=== PATIENT | female | born 1980 | race Caucasian/White ===

== ENCOUNTER → 2020-05-29 18:00 | Outpatient (BNVA) | payer SELFPAY | PROVIDERS: Visit Provider Nurse Practitioner Family | DX: R39.9 Unspecified symptoms and signs involving the genitourinary system (principal); N39.0 Urinary tract infection, site not specified; R31.9 Hematuria, unspecified | CPT/HCPCS: 81000 ==

== ENCOUNTER 2020-11-07 18:04 | Emergency (ER) | payer SELFPAY ==
[2020-11-07 18:07] VITALS: BP 159/87; PULSE 89; RESP 18; TEMP 37.2; O2SAT 98; BMI 49.7
--- NOTE | 2020-11-07 18:08 | XR_ITS ---
WS: [id number] KUB, 11/07/2020 Clinical Data: constipation Comparison: Acute abdomen series, 05/30/2013. Findings: No abnormal intraabdominal masses or calcifications are seen. There is no dilatated small bowel or ev idence of obstruction. There are clips in the right upper quadrant from a cholecystectomy. XR/XR KUB [id number] Impression: Negative KUB.
--- NOTE | 2020-11-07 20:11 | W.ED.ABDPA2 ---
HPI - Abdominal Pain General: Chief Complaint: Abdominal Pain Stated Complaint: severe lower abdomen pain, constipation Time Seen by Provider: 11/07/20 19:51 History of Present Illness: HPI narrative: The patient is a 40-year-old female with diverticulitis who recently finished a course of Augmentin given by primary care doctor. She finished her 10-day course and only a couple days later started having a flareup and she has been in severe left lower quadrant pain. Denies constipation. She says she has her gallbladder out and has normal soft bowel movements MD elicited complaint: abdominal pain Location: LLQ Severity: moderate Quality: cramping and sharp Radiation: LLQ Migration to: no migration Exacerbating factors: bowel movement Relieving factors: nothing Associated Symptoms: Denies GI cramping and diarrhea Review of Systems General: Reports: 10 or more systems reviewed and unremarkable except in HPI and below Const: Denies: fatigue Eyes: Denies: change in vision, blurry vision or eye redness ENMT: Denies: throat pain, swelling of lips/tongue, ear or mastoid pain or nasal congestion Card: Denies: chest pain, palpitations, irregular heart rhythm, edema, dyspnea on exertion or orthopnea Resp: Denies: dyspnea, productive cough or non-productive cough GI: Reports: abdominal pain; Denies: diarrhea or GI cramping : Denies: flank pain, difficulty voiding, urinary frequency or urinary urgency Musc: Denies: neck pain, back pain, extremity pain, joint pain, joint redness, limited range of motion or muscle weakness Skin/Breast: Denies: rash, pruritus, erythema, skin pain or skin tenderness Neuro: Denies: headache(s), numbness in extremities, weakness in extremities, sensory changes, difficulty walking, dizziness, confusion or Slurred speech present Psych: Denies: anxiety or depression Endo: Denies: polyuria All/Imm: Denies: urticaria, throat swelling or tongue swelling PFSH ED PFSH: Social History (Updated 10/26/20 @ 11:25 by COBY Oneil) Smoking and tobacco status: current every day smoker Alcohol intake: current Physical Exam Const: COMMON NORMALS: no acute distress, average body habitus, patient oriented x3, no limitations, healthy appearing, alert and well nourished GENERAL APPEARANCE: cooperative, comfortable, well kempt and well developed ORIENTATION/CONSCIOUSNESS: Yes awake, Yes oriented to person, Yes oriented to place and Yes oriented to time HENMT: COMMON NORMALS: normocephalic, external ears normal and Normal external nose present HEAD & SCALP: normal to inspection and normocephalic NOSE: Normal external nose present EXTERNAL EAR: Yes external ears normal MOUTH: Normal oral and palatal mucosa present THROAT: posterior oropharynx normal Eye: COMMON NORMALS: Equal, round and reactive pupils present and EOMs intact bilaterally GENERAL EYE: appearance normal, both eyes and all related structures PUPIL: Yes Equal, round and reactive pupils present Neck/C-Spine: COMMON NORMALS: full ROM, no lymphadenopathy, no meningeal signs and no JVD GENERAL: Yes normal visual inspection Lymph: LYMPHATIC: no lymphadenopathy noted Chest: COMMONS NORMALS: normal inspection of the chest and normal palpation of entire chest wall Resp: COMMON NORMALS: normal respiratory effort, No retractions, No use of accessory muscles, clear to auscultation bilaterally and percussion normal EFFORT & INSPECTION: Yes able to speak in complete sentences AUSCULTATION: clear to auscultation bilaterally PERCUSSION: percussion normal Cardio: COMMON NORMALS: no JVD, regular rate, regular rhythm, S1 normal heart sound present, S2 normal heart sound present and Peripheral pulses 2+ throughout RATE: regular rate RHYTHM: regular rhythm HEART SOUNDS: S1 normal heart sound present and S2 normal heart sound present PERIPHERAL PULSES: Peripheral pulses 2+ throughout GI: COMMON NORMALS: Normal to inspection, nondistended, normoactive bowel sounds present, Soft to palpation and no masses INSPECTION: Yes normal to inspection PALPATION: Yes Soft to palpation GI image (female): 1. LLQ tenderness. No rebound. Morbid obesity : COMMON NORMALS: Yes no CVA tenderness BLADDER/KIDNEY EXAM: Yes no CVA tenderness Back/Pelvis: COMMON NORMALS: no CVA tenderness, thoracic and lumbar spine normal to inspection, no thoracic nor lumbar tenderness and thoraco-lumbar ROM normal Extremity: COMMON NORMALS: normal to inspection, full ROM, capillary refill normal, no joint enlargement and no pedal edema GENERAL: Yes normal exam except as noted Neuro: COMMON NORMALS: patient oriented x3, CN's II-XII intact bilaterally, moves all extremities, no focal motor deficits, no sensory deficits noted and gait normal SENSORIUM/ORIENTATION: Yes alert, Yes oriented to person, Yes oriented to place and Yes oriented to time MENINGEAL SIGNS: Yes no meningeal signs Psych: COMMON NORMALS: mental status grossly normal, Normal thought process present, cooperative, normal affect and speech normal APPEARANCE: Yes well kempt ATTITUDE: Yes calm SPEECH: Yes normal speech THOUGHT PROCESS: Normal thought process present Skin: COMMON NORMALS: no rashes or lesions noted GENERAL SKIN EXAM: no rashes or lesions noted Course Vital Signs: Vital signs: Vital Signs Temperature 99.0 F 11/07/20 18:07 Pulse Rate 89 11/07/20 18:07 Respiratory Rate 18 11/07/20 18:07 Blood Pressure 159/87 11/07/20 18:07 Pulse Oximetry 98 11/07/20 18:07 MDM - Abdominal Pain MDM Narrative: Medical decision making narrative: The patient came in of complaining of left lower quadrant pain familiar to her as diverticulitis. Her white count was 18. CT shows no abscess. She will be discharged with ciprofloxacin and Flagyl for 2 weeks. Her pain is moderate and should be controlled by hydrocodone at home. Do not mix with drugs, alcohol, nor operate machinery while taking that medication. Return to the ER with worsening symptoms as that may be signs of an abscess. She understands and will follow the plan Lab Data: Labs: Lab Results 11/07/20 11/07/20 11/07/20 Range/Units 20:14 20:14 20:21 WBC 18.9 H (4.0-10.0) 10^3/ uL RBC 5.23 (4.1-5.3) 10^6/u L Hgb 15.2 (11.5-15.3) g/dL Hct 47.3 H (37.0-47.0) % MCV 90.4 (81-99) fL MCH 29.1 (28.0-34.0) pg MCHC 32.1 (30.0-36.0) g/dL RDW 13.6 (12.1-15.1) % Plt Count 252 (130-400) 10^3/c mm MPV 11.3 H (7.4-10.4) fL Neut % (Auto) 76.7 % Lymph % (Auto) 14.1 % [place] % (Auto) 7.8 % Eos % (Auto) 0.7 % Baso % (Auto) 0.3 % Neut # (Auto) 14.46 H (1.8-7.7) 10^3/u L Lymph # (Auto) 2.7 (0.8-4.8) 10^3/u L [place] # (Auto) 1.5 H (0.2-0.9) 10^3/u L Eos # (Auto) 0.1 (0.0-0.8) 10^3/u L Baso # (Auto) 0.1 (0.0-0.1) 10^3/u L Nucleated RBC % (a uto) 0 % Nucleated RBCs # 0.0 /100WBC Sodium (136-145) mmol/L Chloride (98-107) mmol/L Carbon Dioxide (22-29) mmol/L Glucose (65-115) mg/dL AST (0-32) U/L ALT (0-33) U/L Alkaline Phosphata se (35-105) IU/L Total Protein (6.6-8.7) g/dL Albumin (3.5-5.2) g/dL Globulin (1.3-4.6) g/dL Lipase (13-60) U/L HCG, Qual Negative (Negative) Urine Color Yellow (Yellow) Urine Appearance Clear (CLEAR) Urine pH 6.5 (5-7) Ur Specific Gravit y 1.020 (1.005-1.030) Urine Protein Neg (Negative) Urine Glucose (UA) Norm (Normal) Urine Ketones Negative (Negative) Urine Blood Neg (Negative) Urine Nitrate Negative (Negative) Urine Bilirubin Neg (Negative) Urine Urobilinogen Norm (Negative) mg/dL Ur Leukocyte Cristina ase Negative (Negative) 11/07/20 Range/Units 20:21 WBC (4.0-10.0) 10^3/ uL RBC (4.1-5.3) 10^6/u L Hgb (11.5-15.3) g/dL Hct (37.0-47.0) % MCV (81-99) fL MCH (28.0-34.0) pg MCHC (30.0-36.0) g/dL RDW (12.1-15.1) % Plt Count (130-400) 10^3/c mm MPV (7.4-10.4) fL Neut % (Auto) % Lymph % (Auto) % [place] % (Auto) % Eos % (Auto) % Baso % (Auto) % Neut # (Auto) (1.8-7.7) 10^3/u L Lymph # (Auto) (0.8-4.8) 10^3/u L [place] # (Auto) (0.2-0.9) 10^3/u L Eos # (Auto) (0.0-0.8) 10^3/u L Baso # (Auto) (0.0-0.1) 10^3/u L Nucleated RBC % (a uto) % Nucleated RBCs # /100WBC Sodium 138 (136-145) mmol/L Chloride 102 (98-107) mmol/L Carbon Dioxide 27 (22-29) mmol/L Glucose 100 (65-115) mg/dL AST 14 (0-32) U/L ALT 15 (0-33) U/L Alkaline Phosphata se 87 (35-105) IU/L Total Protein 7.3 (6.6-8.7) g/dL Albumin 4.2 (3.5-5.2) g/dL Globulin 3.1 (1.3-4.6) g/dL Lipase 35 (13-60) U/L HCG, Qual (Negative) Urine Color (Yellow) Urine Appearance (CLEAR) Urine pH (5-7) Ur Specific Gravit y (1.005-1.030) Urine Protein (Negative) Urine Glucose (UA) (Normal) Urine Ketones (Negative) Urine Blood (Negative) Urine Nitrate (Negative) Urine Bilirubin (Negative) Urine Urobilinogen (Negative) mg/dL Ur Leukocyte Cristina ase (Negative) Discharge Plan Discharge Patient Disposition: Home Clinical Impression: Diverticulitis Condition: Stable Prescriptions: New ciprofloxacin HCl 500 mg tablet 500 mg PO Q12H Qty: 28 RF: 0 Flagyl 500 mg tablet 500 mg PO Q8H 14 Days Qty: 42 RF: 0 [place] 5-325 mg tablet 1 tab PO Q6H PRN (Reason: pain) Qty: 10 RF: 0 Discharge Orders: Discharge ED (Routine); Ordered 11/07/20 Ordered By: Cedrick Dorantes Referrals: Amol Shepherd MD [Primary Care Provider] - Discharge Diet: Advance as tolerated Discharge Activity: Resume usual activity Patient Instructions: Diverticulitis (ED) Activity Restrictions/Additional Instructions: You have diverticulitis. Please take ciprofloxacin and Flagyl for 14 days as directed on the prescriptions. You may take [place] for severe pain only. Do not mix that medication with drugs, alcohol, nor operate machinery while using it. Return to the ER with worsening symptoms otherwise follow-up with your primary care physician in a few days to discuss again. Coding Level of Care Code ED Tube Winder for Bj Fwd Exam Comprehensive
[2020-11-07] MEDS: ketorolac 30 mg/mL INJ 15 MG IVP (20:29)
[2020-11-07 20:30] LABS: HCG Qualitative Urine. Negative (Negative)
[2020-11-07 20:35] LABS: Basophils # 0.1 10^3/uL (0.0-0.1); Basophils % 0.3 %; Eosinophils # 0.1 10^3/uL (0.0-0.8); Eosinophils % 0.7 %; Hematocrit 47.3 % (37.0-47.0); Hemoglobin 15.2 g/dL (11.5-15.3); Lymphocytes # 2.7 10^3/uL (0.8-4.8); Lymphocytes % 14.1 %; Mean Corpuscular HGB Conc 32.1 g/dL (30.0-36.0); Mean Corpuscular Hemoglobin 29.1 pg (28.0-34.0); Mean Corpuscular Volume 90.4 fL (81-99); Mean Platelet Volume 11.3 fL (7.4-10.4); Monocytes # 1.5 10^3/uL (0.2-0.9); Monocytes % 7.8 %; Neutrophils # 14.46 10^3/uL (1.8-7.7); Neutrophils % 76.7 %; Nucleated Red Blood Cells % 0 %; Platelet Count 252 10^3/cmm (130-400); Red Blood Count 5.23 10^6/uL (4.1-5.3); Red Cell Distribution Width 13.6 % (12.1-15.1); White Blood Count 18.9 10^3/uL (4.0-10.0)
--- NOTE | 2020-11-07 20:39 | CTR_ITS ---
PROCEDURE INFORMATION: Exam: CT Abdomen And Pelvis With Contrast Exam date and time: 11/07/2020 9:01 PM Age: 40 years old Clinical indication: Abdominal pain; Localized; Left lower quadrant (llq); Prior surgery; Surgery type: Gb. Csection. ; Patient HX: Llq pain; Additional info: Diverticulitis. Wbc 18 TECHNIQUE: Imaging protocol: Computed tomography of the abdomen and pelvis with intravenous contrast. Radiation optimization: All CT scans at this facility use at least one of these dose optimization techniques: automated exposure control; mA and/or kV adjustment per patient size (includes targeted exams where dose is matched to clinical indication); or iterative reconstruction. Contrast material: OMNI 300; Contrast volume: 95 ml; Contrast route: INTRAVENOUS (IV); COMPARISON: CT abdomen pelvis w con* [id number] 07/07/2015 1:14 PM RADIATION DOSE METRICS: Total DLP (mGy-cm): 2011.34 FINDINGS: There is a small nodule in the right lung base unchanged from June 2015. The lung bases are otherwise clear. There are degenerative changes of the spine. There are degenerative changes of both hips. There is no liver mass. There is no intrahepatic biliary dilatation. The patient is status post cholecystectomy. The pancreas is unremarkable. The spleen is unremarkable. There is no adrenal mass. There is a 5 mm hypodensity within the left kidney likely benign. No renal calculi or hydronephrosis is seen. The aorta is normal in caliber. The IVC is normal in caliber. There is no retroperitoneal adenopathy. There is no mesenteric adenopathy. The stomach is unremarkable. The small bowel loops in the upper abdomen are nondistended with no bowel wall thickening. The colonic structures within the upper abdomen are normal in caliber with no bowel wall thickening. Scattered colonic diverticuli are present. Within the pelvis: A normal appendix is seen within the right lower quadrant. The bladder is nondistended. The uterus is unremarkable. There are no adnexal masses. There is no free fluid within the pelvis. There is no inguinal adenopathy. There is no pelvic adenopathy. There is thickening of the wall of the proximal sigmoid colon. There are diverticuli. There is pericolonic fat stranding. The findings are consistent with acute sigmoid diverticulitis. There is no abscess or perforation. CT/CT abdomen pelvis w con* [id number] IMPRESSION: Acute sigmoid diverticulitis. No abscess or perforation. COMMENTS: Consistent with the [employer]'s Incidental Findings Committee white paper (J Am Funmilayo Radiol 2018): Any incidental renal lesion less than 1 cm or classified as too small to characterize, or any incidental cystic renal lesion characterized as simple-appearing, is likely benign. No follow-up imaging is recommended for these lesions per consensus recommendations based on imaging criteria. Radiation Dose CTDIVOL = (mGy): DLP = 2012.34 (mGy-cm)
[2020-11-07 20:54] LABS: Add Urine Microscopic? NO
[2020-11-07 20:58] LABS: Bilirubin Urine Neg (Negative); Blood Urine Neg (Negative); Glucose Urine UA Norm (Normal); Ketones Urine Negative (Negative); Leukocyte Esterase Urine Negative (Negative); Nitrate Urine Negative (Negative); Protein Urine Neg (Negative); Urine Appearance Clear (CLEAR); Urine Color Yellow (Yellow); Urobilinogen Urine Norm (Negative); pH Urine 6.5 (5-7)
[2020-11-07] MEDS: iohexol 300 mg/mL 100 mL Btl IV (21:01)
[2020-11-07 21:12] LABS: Alanine Aminotransferase 15 U/L (0-33); Albumin Level 4.2 g/dL (3.5-5.2); Alkaline Phosphatase 87 IU/L (35-105); Aspartate Amino Transferase 14 U/L (0-32); Carbon Dioxide 27 mmol/L (22-29); Chloride 102 mmol/L (98-107); Globulin 3.1 g/dL (1.3-4.6); Glucose 100 mg/dL (65-115); Lipase 35 U/L (13-60); Sodium 138 mmol/L (136-145); Total Protein 7.3 g/dL (6.6-8.7)
[2020-11-07] MEDS: ciprofloxacin 500 mg Tablet PO (21:46)
[2020-11-07] MEDS: metroNIDAZOLE 500 MG Tablet PO (21:46)
[2020-11-07 22:12] LABS: Anion Gap 12.7 (5-19); Potassium 3.7 mmol/L (3.5-5.1)
[2020-11-07 22:13] LABS: Blood Urea Nitrogen 11 mg/dL (6-20); Calcium 9.6 mg/dL (8.5-10.5); Glomerular Filtration Rate 93.6 mL/min (90-130); Osmolality Calculated 285 mOsm/kg (285-295); Total Bilirubin 0.3 mg/dL (0.15-1.2)
[2020-11-07 22:42] VITALS: BP 128/67; PULSE 74; RESP 19; O2SAT 97
[2020-11-07] MEDS: HYDROcodone-acetaminophen 5-325 mg Tablet 2 TAB PO (22:42)
== END 2020-11-07 22:42 | disposition home or self-care (01) ==
PROVIDERS: Emergency Provider Family Medicine; PCP General Practice
DX: K57.92 Diverticulitis of intestine, part unspecified, without perforation or abscess without bleeding (principal); F17.210 Nicotine dependence, cigarettes, uncomplicated
CPT/HCPCS: 12345; 74018; 74177; 80053; 81003; 81025; 83690; 85025; 96374; 99282; 99283; J1885; Q9967

== ENCOUNTER → 2021-06-02 10:55 | Outpatient (BNVA) | payer MEDICAID, SELFPAY | PROVIDERS: PCP General Practice; Visit Provider Nurse Practitioner | DX: M54.9 Dorsalgia, unspecified (principal); R52 Pain, unspecified | CPT/HCPCS: 81000; 87635 ==

== ENCOUNTER 2021-08-04 20:55 | Emergency (ER) | payer MEDICAID, SELFPAY ==
[2021-08-04 21:04] VITALS: BP 138/88; PULSE 79; RESP 18; TEMP 36.8; O2SAT 98; BMI 34.4
--- NOTE | 2021-08-04 21:12 | ED_ITS ---
HPI - Abdominal Pain General: Chief Complaint: Abdominal Pain Stated Complaint: Diverticulitis Pain Time Seen by Provider: 08/04/21 21:12 History of Present Illness: HPI narrative: 40-year-old female comes in today with history of diverticulitis, with worsening pain over the last 2 days. Patient thinks she has a flare of her diverticulitis. Patient denies any high fevers. Patient appears well. Patient reports diarrhea stools with trace of blood. Patient denies as being reported on her period at this time. Associated Symptoms: Reports diarrhea and hematochezia Related Data: Date of Last Menstrual Period: 08/04/21 Review of Systems General: Reports: 10 or more systems reviewed and unremarkable except in HPI and below GI: Reports: abdominal pain, diarrhea and hematochezia PFSH ED PFSH: Social History Smoking and tobacco status: current every day smoker Alcohol intake: current Female Reproductive History: Date of last menstrual period: 08/04/21 Physical Exam Const: COMMON NORMALS: no acute distress and patient oriented x3 GENERAL APPEARANCE: cooperative HENMT: COMMON NORMALS: normocephalic and Normal external nose present HEAD & SCALP: normal to inspection and normocephalic NOSE: Normal external nose present MOUTH: Normal oral and palatal mucosa present Eye: GENERAL EYE: appearance normal, both eyes and all related structures Neck/C-Spine: COMMON NORMALS: full ROM Chest: COMMONS NORMALS: normal inspection of the chest Resp: COMMON NORMALS: normal respiratory effort EFFORT & INSPECTION: Yes able to speak in complete sentences Cardio: COMMON NORMALS: regular rate and regular rhythm RATE: regular rate RHYTHM: regular rhythm GI: COMMON NORMALS: Soft to palpation AUSCULTATION: Yes normoactive bowel sounds PALPATION: Yes Soft to palpation and Yes Tenderness to palpation present (GI) Details: LLQ : COMMON NORMALS: Yes no CVA tenderness BLADDER/KIDNEY EXAM: Yes no CVA tenderness Back/Pelvis: COMMON NORMALS: no CVA tenderness and thoracic and lumbar spine normal to inspection Extremity: COMMON NORMALS: normal to inspection Neuro: COMMON NORMALS: patient oriented x3 and moves all extremities Psych: COMMON NORMALS: mental status grossly normal and cooperative Skin: COMMON NORMALS: no rashes or lesions noted GENERAL SKIN EXAM: no rashes or lesions noted Course Vital Signs: Vital signs: Vital Signs Temperature 98.2 F 08/04/21 21:04 Pulse Rate 79 08/04/21 21:04 Respiratory Rate 18 08/04/21 21:04 Blood Pressure 138/88 08/04/21 21:04 Pulse Oximetry 98 08/04/21 21:04 MDM - Abdominal Pain MDM Narrative: Medical decision making narrative: Patient came in for some left lower quadrant abdominal pain today patient has a history of diverticulitis and felt she might be developing a new infection. On exam abdomen soft with normal bowel sounds, tenderness in the left lower quadrant. Differential diagnosis includes but not limited to constipation, colitis, diverticulitis. Laboratory values noted slight elevation in white blood cell count of 12,000. CMP was normal. CT of the abdomen and pelvis noted mild diverticulitis. Reviewed exam with patient with recommendations for treatment. Patient will be treated with Cipro and Flagyl. Patient was written for a short course of hydrocodone to assist with pain no prior prescription was noted in the record. Patient was also given some Zofran for nausea and vomiting. Patient reported u nderstanding of care plan and need for follow-up or return to the ER. Lab Data: Labs: Lab Results 08/04/21 08/04/21 08/04/21 22:05 22:05 22:05 WBC 12.8 10^3/uL H 10 ^3/uL (4.0-10.0) RBC 4.88 10^6/uL 10^6 /uL (4.1-5.3) Hgb 13.9 g/dL g/dL (11.5-15.3) Hct 43.2 % % (37.0-47.0) MCV 88.5 fl fl (81-99) MCH 28.5 pg pg (28.0-34.0) MCHC 32.2 g/dL g/dL (30.0-36.0) RDW 13.4 % % (12.1-15.1) Plt Count 241 10^3/cmm 10^3 /cmm (130-400) MPV 11.1 fL H fL (7.4-10.4) Neut % (Auto) 65.0 % % Lymph % (Auto) 24.7 % % [place] % (Auto) 7.2 % % Eos % (Auto) 2.5 % % Baso % (Auto) 0.4 % % Neut # (Auto) 8.28 10^3/uL H 10 ^3/uL (1.8-7.7) Lymph # (Auto) 3.2 10^3/uL 10^3/ uL (0.8-4.8) [place] # (Auto) 0.9 10^3/uL 10^3/ uL (0.2-0.9) Eos # (Auto) 0.3 10^3/uL 10^3/ uL (0.0-0.8) Baso # (Auto) 0.1 10^3/uL 10^3/ uL (0.0-0.1) Nucleated RBC % (a uto) 0 % % Nucleated RBCs # 0.0 /100WBC /100W BC Sodium 142 mmol/L mmol/L (136-145) Potassium 3.6 mmol/L mmol/L (3.5-5.1) Chloride 105 mmol/L mmol/L (98-107) Carbon Dioxide 27 mmol/L mmol/L (22-29) Anion Gap 13.6 (5-19) BUN 8 mg/dL mg/dL (6-20) Creatinine 0.7 mg/dL mg/dL (0.5-0.9) GFR Calculation 93.6 mL/min mL/mi n (90-130) Glucose 89 mg/dL mg/dL (65-115) Calculated Osmolal ity 292 mOsm/kg mOsm/ kg (285-295) Calcium 8.7 mg/dL mg/dL (8.5-10.5) Total Bilirubin 0.3 mg/dL mg/dL (0.15-1.2) AST 12 U/L U/L (0-32) ALT 10 U/L U/L (0-33) Alkaline Phosphata se 81 IU/L IU/L (35-105) Total Protein 7.0 g/dL g/dL (6.6-8.7) Albumin 4.2 g/dL g/dL (3.5-5.2) Globulin 2.8 g/dL g/dL (1.3-4.6) Lipase 27 U/L U/L (13-60) HCG, Qual Negative (Negative) Urine Color Urine Appearance Urine pH Ur Specific Gravit y Urine Protein Urine Glucose (UA) Urine Ketones Urine Blood Urine Nitrate Urine Bilirubin Urine Urobilinogen Ur Leukocyte Cristina ase Urine RBC Urine WBC Ur Squamous Epith Cells Amorphous Sediment Urine Bacteria 08/04/21 22:20 WBC RBC Hgb Hct MCV MCH MCHC RDW Plt Count MPV Neut % (Auto) Lymph % (Auto) [place] % (Auto) Eos % (Auto) Baso % (Auto) Neut # (Auto) Lymph # (Auto) [place] # (Auto) Eos # (Auto) Baso # (Auto) Nucleated RBC % (a uto) Nucleated RBCs # Sodium Potassium Chloride Carbon Dioxide Anion Gap BUN Creatinine GFR Calculation Glucose Calculated Osmolal ity Calcium Total Bilirubin AST ALT Alkaline Phosphata se Total Protein Albumin Globulin Lipase HCG, Qual Urine Color Yellow (Yellow) Urine Appearance Clear (CLEAR) Urine pH 5 (5-7) Ur Specific Gravit y 1.020 (1.005-1.030) Urine Protein Neg (Negative) Urine Glucose (UA) Norm (Normal) Urine Ketones Negative (Negative) Urine Blood 3+ H (Negative) Urine Nitrate Negative (Negative) Urine Bilirubin Neg (Negative) Urine Urobilinogen 1 mg/dL H mg/dL (Negative) Ur Leukocyte Cristina ase Negative (Negative) Urine RBC 10-15 /hpf H /hpf (0-2) Urine WBC 0-4 /hpf H /hpf (0-5) Ur Squamous Epith Cells 10-15 /hpf H /hpf (0-5) Amorphous Sediment Not Reportable Urine Bacteria 1+ /hpf H /hpf (NONE) Discharge Plan Discharge Patient Disposition: Home Clinical Impression: Diverticulitis Condition: Stable Prescriptions: New Cipro 500 mg tablet 500 mg PO BID Qty: 14 RF: 0 metronidazole 500 mg tablet 500 mg PO BID 7 Days Qty: 14 RF: 0 ondansetron 4 mg tablet,disintegrating 4 mg PO Q8H PRN (Reason: nausea and vomiting) Qty: 7 RF: 0 hydrocodone-acetaminophen 5-325 mg tablet 1 tab PO Q8H PRN (Reason: pain) Qty: 7 RF: 0 Discharge Orders: Discharge ED (Routine); Ordered 08/05/21 Ordered By: Deejay Calzada Discharge Diet: Usual diet Discharge Activity: Increase activity as tolerated Patient Instructions: Diverticulitis (ED), Opioid Safety Activity Restrictions/Additional Instructions: Home and rest. Drink plenty of fluids. Use medications as directed. Follow-up with primary care as needed. Return to the ER for high fever or new concerns. 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
--- NOTE | 2021-08-04 21:18 | CTR_ITS ---
PROCEDURE INFORMATION: Exam: CT Abdomen And Pelvis With Contrast Exam date and time: 08/04/2021 9:18 PM Age: 40 years old Clinical indication: Abdominal pain; Generalized; Prior surgery; Surgery date: 6+ months; Surgery type: Gb, c-sect; Patient HX: C/O abd pain and diarrhea w HX of diverticulitis; Additional info: Abd pain, HX of diveritculitis TECHNIQUE: Imaging protocol: Computed tomography of the abdomen and pelvis with contrast. Radiation optimization: All CT scans at this facility use at least one of these dose optimization techniques: automated exposure control; mA and/or kV adjustment per patient size (includes targeted exams where dose is matched to clinical indication); or iterative reconstruction. Contrast material: OMNI 300; Contrast volume: 95 ml; Contrast route: INTRAVENOUS (IV); COMPARISON: CT abdomen pelvis w con* [id number] 11/07/2020 8:51 PM RADIATION DOSE METRICS: Total DLP (mGy-cm): 1945.99 FINDINGS: Lungs: Stable 3 mm left lower lobe nodule. Liver: Normal. No mass. Gallbladder and bile ducts: Cholecystectomy. The bile ducts are normal. Pancreas: Normal. No ductal dilation. Spleen: Normal. No splenomegaly. Adrenal glands: Normal. No mass. Kidneys and ureters: Normal. No hydronephrosis. Stomach and bowel: Diverticulosis of the colon. There is inflammation surrounding a single diverticulum in the anterior proximal descending colon, with adjacent fat stranding. The stomach and small bowel are unremarkable. No obstruction. Appendix: The appendix is visualized and is normal. Intraperitoneal space: Unremarkable. No free air. No significant fluid collection. Vasculature: Unremarkable. No abdominal aortic aneurysm. Lymph nodes: Unremarkable. No enlarged lymph nodes. Urinary bladder: Unremarkable as visualized. Reproductive: Unremarkable as visualized. Bones/joints: Unremarkable. No acute fracture. Soft tissues: Small fat containing umbilical hernia. CT/CT abdomen pelvis w con* [id number] IMPRESSION: 1. Mild acute diverticulitis in the proximal descending colon. 2. 3 mm left pulmonary nodule. For patients at low risk (minimal or absent history of smoking and of other known risk factors), no routine follow-up is indicated. For patients at high risk (history of smoking or of other known risk factors), consider optional CT Chest at 12 months. (Reference: Nela) References: Nela Broussard et al. Guidelines for Management of Incidental Pulmonary Nodules Detected on CT Images: From the Fleischner Society 2017. Radiology. 2017;284(1):228-243. Radiation Dose CTDIVOL = (mGy): DLP = 1945.99 (mGy-cm)
[2021-08-04 22:13] LABS: Basophils # 0.1 10^3/uL (0.0-0.1); Basophils % 0.4 %; Eosinophils # 0.3 10^3/uL (0.0-0.8); Eosinophils % 2.5 %; Hematocrit 43.2 % (37.0-47.0); Hemoglobin 13.9 g/dL (11.5-15.3); Lymphocytes # 3.2 10^3/uL (0.8-4.8); Lymphocytes % 24.7 %; Mean Corpuscular HGB Conc 32.2 g/dL (30.0-36.0); Mean Corpuscular Hemoglobin 28.5 pg (28.0-34.0); Mean Corpuscular Volume 88.5 fl (81-99); Mean Platelet Volume 11.1 fL (7.4-10.4); Monocytes # 0.9 10^3/uL (0.2-0.9); Monocytes % 7.2 %; Neutrophils # 8.28 10^3/uL (1.8-7.7); Nucleated Red Blood Cells % 0 %; Platelet Count 241 10^3/cmm (130-400); Red Blood Count 4.88 10^6/uL (4.1-5.3); Red Cell Distribution Width 13.4 % (12.1-15.1); White Blood Count 12.8 10^3/uL (4.0-10.0)
[2021-08-04] MEDS: morphine 4 mg/mL SDV 1 mL IVP (22:28)
[2021-08-04 22:34] LABS: HCG, Serum Qual Negative (Negative)
[2021-08-04 22:34] LABS: Urine Appearance Clear (CLEAR); Urine Color Yellow (Yellow)
[2021-08-04 22:35] LABS: Add Urine Microscopic? YES; Bilirubin Urine Neg (Negative); Blood Urine 3+ (Negative); Glucose Urine UA Norm (Normal); Ketones Urine Negative (Negative); Leukocyte Esterase Urine Negative (Negative); Nitrate Urine Negative (Negative); Protein Urine Neg (Negative); Urobilinogen Urine 1 mg/dL (Negative); pH Urine 5 (5-7)
[2021-08-04 22:41] LABS: Alanine Aminotransferase 10 U/L (0-33); Albumin Level 4.2 g/dL (3.5-5.2); Alkaline Phosphatase 81 IU/L (35-105); Anion Gap 13.6 (5-19); Aspartate Amino Transferase 12 U/L (0-32); Blood Urea Nitrogen 8 mg/dL (6-20); Calcium 8.7 mg/dL (8.5-10.5); Carbon Dioxide 27 mmol/L (22-29); Chloride 105 mmol/L (98-107); Globulin 2.8 g/dL (1.3-4.6); Glomerular Filtration Rate 93.6 mL/min (90-130); Glucose 89 mg/dL (65-115); Lipase 27 U/L (13-60); Osmolality Calculated 292 mOsm/kg (285-295); Potassium 3.6 mmol/L (3.5-5.1); Sodium 142 mmol/L (136-145); Total Bilirubin 0.3 mg/dL (0.15-1.2)
[2021-08-04 22:44] LABS: Add Urine Culture? No; Bacteria Urine 1+ /hpf; WBC Urine 0-4 /hpf (0-5)
[2021-08-04] MEDS: iohexol 300 mg/mL 100 mL Btl IV (22:44)
[2021-08-05] MEDS: metroNIDAZOLE 500 MG Tablet PO (00:12)
[2021-08-05] MEDS: ciprofloxacin 500 mg Tablet PO (00:12)
[2021-08-05] MEDS: HYDROcodone-acetaminophen 10-325 mg Tablet 1 TAB PO (00:28)
[2021-08-05 00:38] VITALS: BP 134/82; PULSE 81; RESP 18; TEMP 36.8; O2SAT 98
== END 2021-08-05 00:37 | disposition home or self-care (01) ==
PROVIDERS: Emergency Medicine; Emergency Provider Nurse Practitioner Family
DX: K57.92 Diverticulitis of intestine, part unspecified, without perforation or abscess without bleeding (principal); F17.210 Nicotine dependence, cigarettes, uncomplicated
CPT/HCPCS: 74177; 80053; 81001; 83690; 84703; 85025; 96374; 99283; J2270; Q9967

== ENCOUNTER 2021-09-11 15:07 | Emergency (ER) | payer MEDICAID, SELFPAY ==
[2021-09-11 15:24] VITALS: BP 151/80; PULSE 66; RESP 16; TEMP 36.8; O2SAT 99; BMI 51.6
[2021-09-11 15:40] VITALS: BP 140/83; PULSE 65; RESP 18; O2SAT 99
--- NOTE | 2021-09-11 15:51 | W.ED.BACK ---
Documented by User: MEME Akers 09/11/21 16:25 HPI - Back Pain/Injury General: Chief Complaint: Back Pain/Injury Stated Complaint: BACK PAIN Time Seen by Provider: 09/11/21 15:31 Source: patient Mode of arrival: ambulatory Limitations: no limitations History of Present Illness: HPI Narrative: Patient is a 41-year-old female who presents to ED today with a complaint of right-sided back pain/spasms. Patient states yesterday morning she awoke from sleep with back pain and thought maybe she strained something by turning wrong in her sleep. She states she gets intense sharp spasm-like pains that radiate around into her lateral chest. She denies urinary symptoms. No history of kidney stones. She is status post cholecystectomy. She does not complain of abdominal pain, nausea, vomiting, diarrhea. Timing: constant Similar Symptoms Previously: No Exacerbating factors: movement Relieving factors: immobilization Associated symptoms: Reports no associated symptoms; Deny abdominal pain, chills, dysuria, fatigue, fever(s), nausea, syncope, urinary urgency or vomiting Work related injury: No Review of Systems Const: Denies: fever(s), chills, body aches, fatigue or malaise Eyes: Denies: change in vision Card: Denies: palpitations, irregular heart rhythm, edema, swelling of feet/ankles, lightheadedness, syncope, pre-syncope, dyspnea on exertion, orthopnea, leg pain with exertion or acrocyanosis Resp: Denies: dyspnea, productive cough, non-productive cough, hemoptysis or chest congestion GI: Denies: abdominal pain, nausea, vomiting or diarrhea : Denies: difficulty voiding, dysuria, urinary frequency, urinary urgency or urinary hesitancy Musc: Reports: back pain; Denies: neck pain, extremity pain, extremity swelling, joint pain or joint swelling Skin/Breast: Denies: rash Neuro: Denies: headache(s), numbness in extremities, weakness in extremities or sensory changes PFSH ED PFSH: Social History Smoking and tobacco status: current every day smoker Alcohol intake: current Female Reproductive History: Date of last menstrual period: 08/04/21 Physical Exam Const: COMMON NORMALS: no acute distress, patient oriented x3, no limitations and alert NUTRITIONAL APPEARANCE: obese morbidly obese ORIENTATION/CONSCIOUSNESS: Yes awake, Yes oriented to person, Yes oriented to place and Yes oriented to time HENMT: COMMON NORMALS: normocephalic and atraumatic HEAD & SCALP: normocephalic and atraumatic Chest: COMMONS NORMALS: normal inspection of the chest OTHER: TTP R posteriolateral chest wall Resp: COMMON NORMALS: normal respiratory effort and clear to auscultation bilaterally AUSCULTATION: clear to auscultation bilaterally Cardio: COMMON NORMALS: regular rate and regular rhythm RATE: regular rate RHYTHM: regular rhythm GI: COMMON NORMALS: Normal to inspection, nondistended, normoactive bowel sounds present, Soft to palpation, non-tender, No hepatosplenomegaly present and no masses PALPATION: Yes Soft to palpation and Yes No hepatosplenomegaly present OTHER: exam limited secondary to body habitus Extremity: COMMON NORMALS: normal to inspection and full ROM GENERAL: Yes normal exam except as noted Neuro: COMMON NORMALS: patient oriented x3, moves all extremities, no focal motor deficits, no sensory deficits noted and gait normal SENSORIUM/ORIENTATION: Yes alert, Yes oriented to person, Yes oriented to place and Yes oriented to time Skin: COMMON NORMALS: no rashes or lesions noted GENERAL SKIN EXAM: no rashes or lesions noted Course Vital Signs: Vital signs: Vital Signs Temperature 98.2 F 09/11/21 15:24 Pulse Rate 62 09/11/21 16:55 Respiratory Rate 16 09/11/21 17:08 Blood Pressure 146/85 09/11/21 16:55 Pulse Oximetry 98 09/11/21 16:55 MDM - Back Pain/Injury Lab Data: Labs: Lab Results 09/11/21 09/11/21 09/11/21 16:00 16:25 16:25 WBC 12.0 10^3/uL H 10 ^3/uL (4.0-10.0) RBC 4.98 10^6/uL 10^6 /uL (4.1-5.3) Hgb 14.5 g/dL g/dL (11.5-15.3) Hct 44.9 % % (37.0-47.0) MCV 90.2 fl fl (81-99) MCH 29.1 pg pg (28.0-34.0) MCHC 32.3 g/dL g/dL (30.0-36.0) RDW 13.4 % % (12.1-15.1) Plt Count 241 10^3/cmm 10^3 /cmm (130-400) MPV 11.7 fL H fL (7.4-10.4) Neut % (Auto) 59.4 % % Lymph % (Auto) 29.4 % % [place] % (Auto) 7.3 % % Eos % (Auto) 3.1 % % Baso % (Auto) 0.4 % % Neut # (Auto) 7.14 10^3/uL 10^3 /uL (1.8-7.7) Lymph # (Auto) 3.5 10^3/uL 10^3/ uL (0.8-4.8) [place] # (Auto) 0.9 10^3/uL 10^3/ uL (0.2-0.9) Eos # (Auto) 0.4 10^3/uL 10^3/ uL (0.0-0.8) Baso # (Auto) 0.1 10^3/uL 10^3/ uL (0.0-0.1) Nucleated RBC % (a uto) 0 % % Nucleated RBCs # 0.0 /100WBC /100W BC Sodium 142 mmol/L mmol/L (136-145) Potassium 4.8 mmol/L mmol/L (3.5-5.1) Chloride 105 mmol/L mmol/L (98-107) Carbon Dioxide 24 mmol/L mmol/L (22-29) Anion Gap 17.8 (5-19) BUN 9 mg/dL mg/dL (6-20) Creatinine 0.6 mg/dL mg/dL (0.5-0.9) GFR Calculation 111.3 mL/min mL/m in (90-130) Glucose 84 mg/dL mg/dL (65-115) Calculated Osmolal ity 292 mOsm/kg mOsm/ kg (285-295) Calcium 8.8 mg/dL mg/dL (8.5-10.5) Total Bilirubin 0.2 mg/dL mg/dL (0.15-1.2) AST 15 U/L U/L (0-32) ALT 13 U/L U/L (0-33) Alkaline Phosphata se 77 IU/L IU/L (35-105) Total Protein 6.2 g/dL L g/dL (6.6-8.7) Albumin 4.2 g/dL g/dL (3.5-5.2) Globulin 2.0 g/dL g/dL (1.3-4.6) Urine Color Yellow (Yellow) Urine Appearance Clear (CLEAR) Urine pH 7 (5-7) Ur Specific Gravit y 1.010 (1.005-1.030) Urine Protein Neg (Negative) Urine Glucose (UA) Norm (Normal) Urine Ketones Negative (Negative) Urine Blood Neg (Negative) Urine Nitrate Negative (Negative) Urine Bilirubin Neg (Negative) Urine Urobilinogen Norm mg/dL mg/dL (Negative) Ur Leukocyte Cristina ase Negative (Negative) Discharge Plan Discharge Patient Disposition: Home Clinical Impression: Strain of lumbar region Qualifiers: Encounter type: initial encounter Qualified Code(s): S39.012A - Strain of muscle, fascia and tendon of lower back, initial encounter Condition: Stable Prescriptions: New cyclobenzaprine 10 mg tablet 10 mg PO BID PRN (Reason: muscle spasm) Qty: 20 RF: 0 Celebrex 100 mg capsule 100 mg PO BID PRN (Reason: pain) Qty: 20 RF: 0 No Action Cipro 500 mg tablet 500 mg PO BID Qty: 14 RF: 0 ondansetron 4 mg tablet,disintegrating 4 mg PO Q8H PRN (Reason: nausea and vomiting) Qty: 7 RF: 0 hydrocodone-acetaminophen 5-325 mg tablet 1 tab PO Q8H PRN (Reason: pain) Qty: 7 RF: 0 Discharge Orders: Discharge ED (Routine); Ordered 09/11/21 Ordered By: Amol Gold Discharge Diet: Regular Discharge Activity: Increase activity as tolerated Patient Instructions: Low Back Strain (ED), Lower Back Exercises (ED) Activity Restrictions/Additional Instructions: Follow-up with medical provider as directed in 7 to 10 days for reevaluation. Apply cold pack or heat on lower back to help with symptoms. Stretch lower back and daily and limit activity and lifting for the next couple days to allow for healing. Take medications as prescribed. Return to the ER or your medical provider if condition worsens. Please read and understand discharge instructions. Thank you for choosing [facility] for your healthcare needs today. Please realize this is an emergency room and that we are providing you with a medical screening exam and this may not be complete and all inclusive of all the testing and or work up that you may need to determine your ailment or severity of your illness. It is very important that you follow up as instructed or that you return to the Emergency Department should you have concerns or if your condition changes or worsens in any way. Sign Out Sign Out Data: Patient Sign Out occurred on 09/11/21 at 17:07. Patient's care was discussed, and care was transferred from to MEME Garcia. Coding Level of Care Code ED Control Director for Chg Fwd Exam Comprehensive Documented by User: MEME Garcia 09/11/21 18:00 HPI - Back Pain/Injury General: Chief Complaint: Back Pain/Injury Stated Complaint: BACK PAIN Time Seen by Provider: 09/11/21 15:31 [facility] ED PFSH: Social History Smoking and tobacco status: current every day smoker Alcohol intake: current Course Reevaluation(s): Reevaluation #1: After patient received morphine she said her pain had improved. Patient was ready to be discharged home. Time: 17:31 Vital Signs: Vital signs: Vital Signs Temperature 98.2 F 09/11/21 15:24 Pulse Rate 62 09/11/21 16:55 Respiratory Rate 16 09/11/21 17:08 Blood Pressure 146/85 09/11/21 16:55 Pulse Oximetry 98 09/11/21 16:55 MDM - Back Pain/Injury MDM Narrative: Medical decision making narrative: Patient is a 41-year-old female comes to the ED with right-sided lower back pain. Denies any injury or trauma to cause pain. Pain worsens with movement. Vital stable. She has some right lumbar soft tissue tenderness along with right lower latissimus dorsi muscle tenderness. CBC and CMP are unremarkable and UA shows no blood or signs of infection. Due to patient's clinical presentation and no blood in urine, kidney stone highly unlikely. Patient was given some Toradol and Norflex along with morphine and her symptoms improved. Patient diagnosed with lower back muscle strain and discharged home with a prescription for Celebrex and cyclobenzaprine. She was told to follow-up with her PCP in 7 to 10 days for reevaluation. Return to ED precautions given. Patient understood agree with plan. Lab Data: Attestation: I reviewed the patient's lab results. Labs: Lab Results 09/11/21 09/11/21 09/11/21 16:00 16:25 16:25 WBC 12.0 10^3/uL H 10 ^3/uL (4.0-10.0) RBC 4.98 10^6/uL 10^6 /uL (4.1-5.3) Hgb 14.5 g/dL g/dL (11.5-15.3) Hct 44.9 % % (37.0-47.0) MCV 90.2 fl fl (81-99) MCH 29.1 pg pg (28.0-34.0) MCHC 32.3 g/dL g/dL (30.0-36.0) RDW 13.4 % % (12.1-15.1) Plt Count 241 10^3/cmm 10^3 /cmm (130-400) MPV 11.7 fL H fL (7.4-10.4) Neut % (Auto) 59.4 % % Lymph % (Auto) 29.4 % % [place] % (Auto) 7.3 % % Eos % (Auto) 3.1 % % Baso % (Auto) 0.4 % % Neut # (Auto) 7.14 10^3/uL 10^3 /uL (1.8-7.7) Lymph # (Auto) 3.5 10^3/uL 10^3/ uL (0.8-4.8) [place] # (Auto) 0.9 10^3/uL 10^3/ uL (0.2-0.9) Eos # (Auto) 0.4 10^3/uL 10^3/ uL (0.0-0.8) Baso # (Auto) 0.1 10^3/uL 10^3/ uL (0.0-0.1) Nucleated RBC % (a uto) 0 % % Nucleated RBCs # 0.0 /100WBC /100W BC Sodium 142 mmol/L mmol/L (136-145) Potassium 4.8 mmol/L mmol/L (3.5-5.1) Chloride 105 mmol/L mmol/L (98-107) Carbon Dioxide 24 mmol/L mmol/L (22-29) Anion Gap 17.8 (5-19) BUN 9 mg/dL mg/dL (6-20) Creatinine 0.6 mg/dL mg/dL (0.5-0.9) GFR Calculation 111.3 mL/min mL/m in (90-130) Glucose 84 mg/dL mg/dL (65-115) Calculated Osmolal ity 292 mOsm/kg mOsm/ kg (285-295) Calcium 8.8 mg/dL mg/dL (8.5-10.5) Total Bilirubin 0.2 mg/dL mg/dL (0.15-1.2) AST 15 U/L U/L (0-32) ALT 13 U/L U/L (0-33) Alkaline Phosphata se 77 IU/L IU/L (35-105) Total Protein 6.2 g/dL L g/dL (6.6-8.7) Albumin 4.2 g/dL g/dL (3.5-5.2) Globulin 2.0 g/dL g/dL (1.3-4.6) Urine Color Yellow (Yellow) Urine Appearance Clear (CLEAR) Urine pH 7 (5-7) Ur Specific Gravit y 1.010 (1.005-1.030) Urine Protein Neg (Negative) Urine Glucose (UA) Norm (Normal) Urine Ketones Negative (Negative) Urine Blood Neg (Negative) Urine Nitrate Negative (Negative) Urine Bilirubin Neg (Negative) Urine Urobilinogen Norm mg/dL mg/dL (Negative) Ur Leukocyte Cristina ase Negative (Negative) Discharge Plan Discharge Patient Disposition: Home Clinical Impression: Strain of lumbar region Qualifiers: Encounter type: initial encounter Qualified Code(s): S39.012A - Strain of muscle, fascia and tendon of lower back, initial encounter Condition: Stable Prescriptions: New cyclobenzaprine 10 mg tablet 10 mg PO BID PRN (Reason: muscle spasm) Qty: 20 RF: 0 Celebrex 100 mg capsule 100 mg PO BID PRN (Reason: pain) Qty: 20 RF: 0 No Action Cipro 500 mg tablet 500 mg PO BID Qty: 14 RF: 0 ondansetron 4 mg tablet,disintegrating 4 mg PO Q8H PRN (Reason: nausea and vomiting) Qty: 7 RF: 0 hydrocodone-acetaminophen 5-325 mg tablet 1 tab PO Q8H PRN (Reason: pain) Qty: 7 RF: 0 Discharge Orders: Discharge ED (Routine); Ordered 09/11/21 Ordered By: Amol Gold Discharge Diet: Regular Discharge Activity: Increase activity as tolerated Patient Instructions: Low Back Strain (ED), Lower Back Exercises (ED) Activity Restrictions/Additional Instructions: Follow-up with medical provider as directed in 7 to 10 days for reevaluation. Apply cold pack or heat on lower back to help with symptoms. Stretch lower back and daily and limit activity and lifting for the next couple days to allow for healing. Take medications as prescribed. Return to the ER or your medical provider if condition worsens. Please read and understand discharge instructions. Thank you for choosing [facility] for your healthcare needs today. Please realize this is an emergency room and that we are providing you with a medical screening exam and this may not be complete and all inclusive of all the testing and or work up that you may need to determine your ailment or severity of your illness. It is very important that you follow up as instructed or that you return to the Emergency Department should you have concerns or if your condition changes or worsens in any way. Sign Out Sign Out Data: Patient Sign Out occurred on 09/11/21 at 17:07. Patient's care was discussed, and care was transferred from to MEME Garcia. Coding Level of Care Code ED Control Director for Bj Fwd Exam Comprehensive
[2021-09-11] MEDS: ketorolac 60 mg/2 mL INJ IM (16:22)
[2021-09-11] MEDS: orphenadrine 30 mg/mL Inj 2 mL 60 MG IM (16:22)
[2021-09-11 16:26] LABS: Add Urine Microscopic? NO; Charge for UA Resulting for Rev
[2021-09-11 16:37] LABS: Bilirubin Urine Neg (Negative); Blood Urine Neg (Negative); Glucose Urine UA Norm (Normal); Ketones Urine Negative (Negative); Leukocyte Esterase Urine Negative (Negative); Nitrate Urine Negative (Negative); Protein Urine Neg (Negative); Urine Appearance Clear (CLEAR); Urine Color Yellow (Yellow); Urobilinogen Urine Norm (Negative); pH Urine 7 (5-7)
[2021-09-11 16:55] VITALS: BP 146/85; PULSE 62; RESP 16; O2SAT 98
[2021-09-11 17:01] LABS: Alanine Aminotransferase 13 U/L (0-33); Albumin Level 4.2 g/dL (3.5-5.2); Alkaline Phosphatase 77 IU/L (35-105); Basophils # 0.1 10^3/uL (0.0-0.1); Basophils % 0.4 %; Blood Urea Nitrogen 9 mg/dL (6-20); Calcium 8.8 mg/dL (8.5-10.5); Carbon Dioxide 24 mmol/L (22-29); Chloride 105 mmol/L (98-107); Eosinophils # 0.4 10^3/uL (0.0-0.8); Eosinophils % 3.1 %; Glomerular Filtration Rate 111.3 mL/min (90-130); Glucose 84 mg/dL (65-115); Hematocrit 44.9 % (37.0-47.0); Hemoglobin 14.5 g/dL (11.5-15.3); Lymphocytes # 3.5 10^3/uL (0.8-4.8); Lymphocytes % 29.4 %; Mean Corpuscular HGB Conc 32.3 g/dL (30.0-36.0); Mean Corpuscular Hemoglobin 29.1 pg (28.0-34.0); Mean Corpuscular Volume 90.2 fl (81-99); Mean Platelet Volume 11.7 fL (7.4-10.4); Monocytes # 0.9 10^3/uL (0.2-0.9); Monocytes % 7.3 %; Neutrophils # 7.14 10^3/uL (1.8-7.7); Neutrophils % 59.4 %; Nucleated Red Blood Cells % 0 %; Osmolality Calculated 292 mOsm/kg (285-295); Platelet Count 241 10^3/cmm (130-400); Red Blood Count 4.98 10^6/uL (4.1-5.3); Red Cell Distribution Width 13.4 % (12.1-15.1); Sodium 142 mmol/L (136-145); Total Bilirubin 0.2 mg/dL (0.15-1.2); Total Protein 6.2 g/dL (6.6-8.7)
[2021-09-11 17:05] LABS: Anion Gap 17.8 (5-19); Aspartate Amino Transferase 15 U/L (0-32); Potassium 4.8 mmol/L (3.5-5.1)
[2021-09-11 17:08] VITALS: RESP 16
[2021-09-11] MEDS: morphine 4 mg/mL SDV 1 mL IM (17:08)
== END 2021-09-11 17:56 | disposition home or self-care (01) ==
PROVIDERS: Physician Assistant; Emergency Provider Physician Assistant
DX: S39.012A Strain of muscle, fascia and tendon of lower back, initial encounter (principal); F17.210 Nicotine dependence, cigarettes, uncomplicated
CPT/HCPCS: 80053; 81003; 85025; 96372; 99283; J1885; J2270; J2360

== ENCOUNTER → 2022-01-16 12:17 | Outpatient (BNVA) | payer MEDICAID, SELFPAY | PROVIDERS: PCP Nurse Practitioner Family; Visit Provider Nurse Practitioner Family | DX: I10 Essential (primary) hypertension (principal); E65 Localized adiposity; Z13.1 Encounter for screening for diabetes mellitus; F32.9 Major depressive disorder, single episode, unspecified | CPT/HCPCS: 80053; 81003; 84439; 84443; 84481; 85025 ==

== ENCOUNTER → 2022-02-19 10:19 | Outpatient (BNVA) | payer MEDICAID, SELFPAY | PROVIDERS: PCP Nurse Practitioner Family; Visit Provider Nurse Practitioner Family | DX: N92.0 Excessive and frequent menstruation with regular cycle (principal) | CPT/HCPCS: 82728; 83550; 85025 ==

== ENCOUNTER → 2023-01-13 14:55 | Outpatient (BNVA) | payer MEDICAID, SELFPAY | PROVIDERS: Visit Provider Nurse Practitioner Family | DX: N39.0 Urinary tract infection, site not specified (principal); N30.01 Acute cystitis with hematuria | CPT/HCPCS: 81000 ==

== ENCOUNTER → 2023-01-27 14:54 | Outpatient (BNVA) | payer MEDICAID, SELFPAY | PROVIDERS: PCP Family Medicine; Visit Provider Family Medicine | DX: R80.9 Proteinuria, unspecified (principal); N12 Tubulo-interstitial nephritis, not specified as acute or chronic; F17.200 Nicotine dependence, unspecified, uncomplicated; Z68.43 Body mass index [BMI] 50.0-59.9, adult; Z87.440 Personal history of urinary (tract) infections | CPT/HCPCS: 81000 ==

== ENCOUNTER 2023-05-19 12:06 | Emergency (ER) | payer MEDICAID, SELFPAY ==
[2023-05-19 12:40] VITALS: BP 162/99; PULSE 65; RESP 18; TEMP 36.8; O2SAT 97; BMI 48.7
[2023-05-19 12:45] VITALS: PULSE 63; O2SAT 96
[2023-05-19 12:49] LABS: Basophils % 0.4 %; Eosinophils # 0.2 10^3/uL (0.0-0.8); Eosinophils % 1.7 %; Hematocrit 45.4 % (37.0-47.0); Lymphocytes # 3.5 10^3/uL (0.8-4.8); Lymphocytes % 31.1 %; Mean Corpuscular Volume 87.8 fl (81-99); Mean Platelet Volume 10.6 fL (7.4-10.4); Monocytes # 0.6 10^3/uL (0.2-0.9); Monocytes % 5.3 %; Neutrophils % 61.1 %; Nucleated Red Blood Cells % 0 %; Platelet Count 258 10^3/cmm (130-400); Red Blood Count 5.17 10^6/uL (4.1-5.3); Red Cell Distribution Width 13.2 % (12.1-15.1); White Blood Count 11.3 10^3/uL (4.0-10.0)
[2023-05-19 13:12] LABS: HCG, Serum Qual Negative (Negative)
[2023-05-19 13:13] LABS: Add Urine Microscopic? NO; Charge for UA Resulting for Rev
[2023-05-19 13:13] LABS: Alanine Aminotransferase 14 U/L (0-33); Albumin Level 4.6 g/dL (3.5-5.2); Alkaline Phosphatase 76 U/L (35-105); Anion Gap 16.8 (5-19); Aspartate Amino Transferase 15 U/L (0-32); Blood Urea Nitrogen 7 mg/dL (6-20); Calcium 9.4 mg/dL (8.5-10.5); Carbon Dioxide 24 mmol/L (22-29); Chloride 104 mmol/L (98-107); Globulin 2.3 g/dL (1.3-4.6); Glomerular Filtration Rate 79.4 mL/min (90-130); Glucose 95 mg/dL (65-115); Lipase 28 U/L (13-60); Osmolality Calculated 290 mOsm/kg (285-295); Potassium 3.8 mmol/L (3.5-5.1); Sodium 141 mmol/L (136-145); Total Bilirubin 0.3 mg/dL (0.15-1.2); Total Protein 6.9 g/dL (6.6-8.7)
[2023-05-19 13:23] LABS: Bilirubin Urine Neg (Negative); Blood Urine Neg (Negative); Glucose Urine UA Norm (Normal); Ketones Urine Negative (Negative); Leukocyte Esterase Urine Negative (Negative); Nitrate Urine Negative (Negative); Protein Urine Neg (Negative); Specific Gravity, Urine 1.005 (1.005-1.030); Urine Appearance Clear (CLEAR); Urine Color Straw (Yellow); Urobilinogen Urine Norm (Negative); pH Urine 6 (5-7)
--- NOTE | 2023-05-19 13:35 | CT_ITS ---
WS: [id number] CT ABDOMEN AND PELVIS NONCONTRAST HISTORY: left flank pain, hematuria TECHNIQUE: Imaging performed through the abdomen and pelvis. Coronal and sagittal reformats are submi tted. All CT scans at [facility] use at least one of these dose optimization techniques: auto mated exposure control; mA and/or kV adjustment per patient size (includes targeted exams where dose is matched to clinical indication); or iterative reconstruction. DLP: 1516.03 mGy.cm COMPARISON: 08/04/2021 Lower thorax: Lung bases are clear. Visualized heart is normal. No hiatal hernia. Liver: Normal size liver. No mass or bile duct dilatation. Gallbladder: Prior cholecystectomy. Pancreas: Normal size and attenuation. Normal pancreatic duct. No pancreatitis or mass. Spleen: Normal. Adrenal glands: Normal. No mass. Right kidney: Normal size kidney with no mass or hydronephrosis. Left kidney: Normal size kidney with no mass or hydronephrosis. Aorta: Normal abdominal aorta, no aneurysm or atherosclerosis. No free fluid, intraperitoneal air or significant lymphadenopathy. GI tract: Normally distended stomach. No small bowel obstruction. Diffuse pandiverticulosis. No acute diverticulitis and no obstruction. Normal appendix. Abdominal wall: Negative. No hernia. Pelvis: No free fluid or adenopathy. Normal appearance of the uterus and ovaries by CT. Osseous structures: Unremarkable. CT/CT kidney stone [id number] IMPRESSION: 1. No renal obstruction or calcifications. 2. Mild diffuse anderson diverticulitis without diverticulosis. 3. Normal appendix. 4. Prior cholecystectomy.
[2023-05-19 14:45] VITALS: BP 160/100; PULSE 64; O2SAT 97
--- NOTE | 2023-05-19 14:49 | ED_ITS ---
HPI - Back Pain/Injury General: Chief Complaint: Back Pain/Injury Stated Complaint: blood in urine, abd pain and low back Time Seen by Provider: 05/19/23 12:55 History of Present Illness: Patient presents ER today with complaints of left flank pain starting about 4 days ago. Patient denies any history of kidney stones or pain burning frequency in her urination. Patient was sent from [facility] due to having blood in her urine they wanted her to be checked out for kidney stone. Patient denies any nausea vomiting diarrhea fever chills etc. PFSH ED PFSH: Medical History delivery delivered Endometriosis Polycystic ovary syndrome Surgical History Hx of section Hx of cholecystectomy Family History Family/Other Cancer Maternal Aunts-breast, pancreatic and brain Other Diabetes Hyperlipidemia Hypertension Lung disease Psychiatric illness Stroke Denies family history of CAD (coronary artery disease) Clotting disorder Dementia Chronic kidney disease (CKD) Anesthesia complication Bleeding disorder Social History Smoking and tobacco status: current every day smoker cigarettes Packs smoked per day: 1 Quit status (tobacco): has tried quititng Second hand smoke exposure: No Smoking risk assessment/counseling performed?: Yes Tobacco counseling given: provider counseling, support medications and counseling >3 minutes Other tobacco screening/counseling details: Does not desire cessation at this time. 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 [employer] Special marisol needs: No Agree to transfusion: Yes Female Reproductive History: Para: 2 Physical Exam Const: COMMON NORMALS: no acute distress, average body habitus, patient oriented x3, no limitations, healthy appearing, alert and well nourished HENMT: COMMON NORMALS: normocephalic, atraumatic, hearing grossly normal bilaterally, external ears normal, Normal external nose present and moist oral mucous membranes HEAD & SCALP: normocephalic and atraumatic NOSE: Normal external nose present EXTERNAL EAR: Yes external ears normal Neck/C-Spine: COMMON NORMALS: full ROM, no lymphadenopathy, supple, no meningeal signs, no JVD and Thyroid normal THYROID: Thyroid normal Chest: COMMONS NORMALS: normal inspection of the chest and normal palpation of entire chest wall Resp: COMMON NORMALS: normal respiratory effort, No retractions, No use of accessory muscles and clear to auscultation bilaterally AUSCULTATION: clear to auscultation bilaterally Cardio: COMMON NORMALS: no JVD, regular rate, regular rhythm, S1 normal heart sound present, S2 normal heart sound present, No gallops present (Cardio), No clicks present (Cardio), No murmurs present (Cardio) and No rub (Cardio) RATE: regular rate RHYTHM: regular rhythm HEART SOUNDS: S1 normal heart sound present and S2 normal heart sound present GI: COMMON NORMALS: Normal to inspection, nondistended, normoactive bowel sounds present, Soft to palpation, non-tender, No hepatosplenomegaly present and no masses PALPATION: Yes Soft to palpation and Yes No hepatosplenomegaly present Neuro: COMMON NORMALS: patient oriented x3 SENSORIUM/ORIENTATION: Yes alert MENINGEAL SIGNS: Yes no meningeal signs Course Vital Signs: Vital signs: Vital Signs Temperature 98.2 F 05/19/23 12:40 Pulse Rate 64 05/19/23 14:45 Respiratory Rate 18 05/19/23 12:40 Blood Pressure 160/100 05/19/23 14:45 Pulse Oximetry 97 05/19/23 14:45 Oxygen Delivery Me thod Room Air 05/19/23 12:45 MDM - Back Pain/Injury Medical Decision Making Patient presents to the ER with complaints of left flank pain starting 4 days ago. Patient denies any urinary tract symptoms. Patient was found to have blood in her urine by Nicholas Burton. Lab work was obtained which essentially was negative abdomen pelvis CT scan was obtained which was essentially -2. This is thought the patient may have just generic back pain and patient be placed on a muscle relaxer and discharged home. Differential Diagnosis Likely strain of lumbar region; Unlikely lumbar radiculopathy, sciatica, renal colic, pyelonephritis, thoracic back pain, AAA or discitis Medical Records I reviewed the patient's medical records. Labs I reviewed the patient's lab results. 05/19/23 12:40 05/19/23 12:40 Radiology Impressions Abdomen/Pelvis CT 05/19/23 13:35 IMPRESSION: 1. No renal obstruction or calcifications. 2. Mild diffuse anderson diverticulitis without diverticulosis. 3. Normal appendix. 4. Prior cholecystectomy. Laboratory Results WBC 11.3 10^3/uL (4.0-10.0) H 05/19/23 12:40 RBC 5.17 10^6/uL (4.1-5.3) 05/19/23 12:40 Hgb 15.0 g/dL (11.5-15.3) 05/19/23 12:40 Hct 45.4 % (37.0-47.0) 05/19/23 12:40 MCV 87.8 fl (81-99) 05/19/23 12:40 MCH 29.0 pg (28.0-34.0) 05/19/23 12:40 MCHC 33.0 g/dL (30.0-36.0) 05/19/23 12:40 RDW 13.2 % (12.1-15.1) 05/19/23 12:40 Plt Count 258 10^3/cmm (130-400) 05/19/23 12:40 MPV 10.6 fL (7.4-10.4) H 05/19/23 12:40 Neut % (Auto) 61.1 % 05/19/23 12:40 Lymph % (Auto) 31.1 % 05/19/23 12:40 [place] % (Auto) 5.3 % 05/19/23 12:40 Eos % (Auto) 1.7 % 05/19/23 12:40 Baso % (Auto) 0.4 % 05/19/23 12:40 Neut # (Auto) 6.90 10^3/uL (1.8-7.7) 05/19/23 12:40 Lymph # (Auto) 3.5 10^3/uL (0.8-4.8) 05/19/23 12:40 [place] # (Auto) 0.6 10^3/uL (0.2-0.9) 05/19/23 12:40 Eos # (Auto) 0.2 10^3/uL (0.0-0.8) 05/19/23 12:40 Baso # (Auto) 0.0 10^3/uL (0.0-0.1) 05/19/23 12:40 Nucleated RBC % (auto) 0 % 05/19/23 12:40 Nucleated RBCs # 0.0 /100WBC 05/19/23 12:40 Sodium 141 mmol/L (136-145) 05/19/23 12:40 Potassium 3.8 mmol/L (3.5-5.1) 05/19/23 12:40 Chloride 104 mmol/L (98-107) 05/19/23 12:40 Carbon Dioxide 24 mmol/L (22-29) 05/19/23 12:40 Anion Gap 16.8 (5-19) 05/19/23 12:40 BUN 7 mg/dL (6-20) 05/19/23 12:40 Creatinine 0.8 mg/dL (0.5-0.9) 05/19/23 12:40 GFR Calculation 79.4 mL/min (90-130) L 05/19/23 12:40 Glucose 95 mg/dL (65-115) 05/19/23 12:40 Calculated Osmolality 290 mOsm/kg (285-295) 05/19/23 12:40 Calcium 9.4 mg/dL (8.5-10.5) 05/19/23 12:40 Total Bilirubin 0.3 mg/dL (0.15-1.2) 05/19/23 12:40 AST 15 U/L (0-32) 05/19/23 12:40 ALT 14 U/L (0-33) 05/19/23 12:40 Alkaline Phosphatase 76 U/L (35-105) 05/19/23 12:40 Total Protein 6.9 g/dL (6.6-8.7) 05/19/23 12:40 Albumin 4.6 g/dL (3.5-5.2) 05/19/23 12:40 Globulin 2.3 g/dL (1.3-4.6) 05/19/23 12:40 Lipase 28 U/L (13-60) 05/19/23 12:40 HCG, Qual Negative (Negative) 05/19/23 12:40 Urine Color Straw (Yellow) 05/19/23 13:00 Urine Appearance Clear (CLEAR) 05/19/23 13:00 Urine pH 6 (5-7) 05/19/23 13:00 Ur Specific Range 1.005 (1.005-1.030) 05/19/23 13:00 Urine Protein Neg (Negative) 05/19/23 13:00 Urine Glucose (UA) Norm (Normal) 05/19/23 13:00 Urine Ketones Negative (Negative) 05/19/23 13:00 Urine Blood Neg (Negative) 05/19/23 13:00 Urine Nitrate Negative (Negative) 05/19/23 13:00 Urine Bilirubin Neg (Negative) 05/19/23 13:00 Urine Urobilinogen Norm mg/dL (Negative) 05/19/23 13:00 Ur Leukocyte Esterase Negative (Negative) 05/19/23 13:00 Discharge Plan Discharge Patient Disposition: Home Clinical Impression: Strain of lumbar region Condition: Stable Prescriptions: New baclofen 5 mg tablet 5 mg PO Q8H PRN (Reason: pain/spasm) Qty: 14 0RF No Action Gummies 400 mcg-35 mg- 25 mg-5 mg tablet,chewable 1 tab PO DAILY glucosamine sulfate [Glucosamine] 500 mg tablet 500 mg PO DAILY Rx Instructions: administer with a meal Discharge Orders: Discharge ED (Routine); Ordered 05/19/23 Ordered By: Luis A Tidwell Referrals: Sam Lynch MD [Primary Care Provider] - 1 week Patient Instructions: Acute Low Back Pain (ED) Activity Restrictions/Additional Instructions: Please take all medicine as prescribed. Please follow-up with your family practice physician in approximately 7 days or sooner as needed for further evaluation and treatment. Coding Level of Care Code ED Technical Maintenance Specialist for Bj Bhatti
[2023-05-19 15:01] VITALS: BP 160/100; PULSE 64; RESP 16; O2SAT 97
== END 2023-05-19 15:03 | disposition home or self-care (01) ==
PROVIDERS: Physician Assistant; Emergency Provider Emergency Medicine; PCP Family Medicine
DX: S39.012A Strain of muscle, fascia and tendon of lower back, initial encounter (principal); F17.210 Nicotine dependence, cigarettes, uncomplicated; X58.XXXA Exposure to other specified factors, initial encounter
CPT/HCPCS: 36415; 74176; 80053; 81000; 81003; 83690; 84703; 85025; 99284

== ENCOUNTER 2023-08-30 08:55 | Emergency (ER) | payer MEDICAID, SELFPAY ==
[2023-08-30 09:06] VITALS: BP 128/82; PULSE 68; RESP 16; TEMP 37.1; O2SAT 97; BMI 48.1
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
--- NOTE | 2023-08-30 10:39 | W.ED.EXTPRO ---
HPI - Extremity Problem General: Chief complaint: Extremity Injury, Upper Stated complaint: hurt right hand Time Seen by Provider: 08/30/23 09:22 History of Present Illness: This patient is a 42-year-old white female who presents to the emergency department with a right hand injury. Patient states she was carrying a file cabinet yesterday and it slipped and jammed her right hand. She is complaining of pain over the fourth and fifth metacarpals of the right hand. Review of Systems General: Reports: 10 or more systems reviewed and unremarkable except in HPI and below PFSH ED PFSH: Medical History (Updated 08/30/23 @ 10:39 by Oumar Cherry MD) delivery delivered Endometriosis Polycystic ovary syndrome Tobacco use disorder, moderate, dependence Surgical History (Updated 06/24/23 @ 14:18 by Jess Hidalgo DO) History of laparoscopy Hx of section x 2 Hx of cholecystectomy Family History Family/Other Cancer Maternal Aunts-breast, pancreatic and brain Other Diabetes Hyperlipidemia Hypertension Lung disease Psychiatric illness Stroke Denies family history of CAD (coronary artery disease) Clotting disorder Dementia Chronic kidney disease (CKD) Anesthesia complication Bleeding disorder Social History Smoking and tobacco/nicotine status: current every day tobacco/nicotine user cigarettes Packs smoked per day: 1 Quit status (tobacco/nicotine): has tried quititng Second hand smoke exposure: No Alcohol intake: current Alcohol intake frequency: holidays/special occasions only Substance/Drug Use: current Substance/Drug use frequency: daily Lives independently: Yes Marital status: Number of children: 2 Current occupational status: employed 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 Full range of motion of all of the digits. No gross deformities. Course Vital Signs: Vital signs: Vital Signs Temperature 98.8 F 08/30/23 09:06 Pulse Rate 68 08/30/23 09:06 Respiratory Rate 16 08/30/23 09:06 Blood Pressure 128/82 08/30/23 09:06 Pulse Oximetry 97 08/30/23 09:06 Oxygen Delivery Me thod Room Air 08/30/23 09:06 MDM - Extremity (Nontraumatic) Medical Decision Making X-rays of the right hand were negative. Patient was instructed to use ice to the area 3-4 times per day for 15 to 20 minutes each time. Take ibuprofen as needed. Follow-up with primary care physician in 2 weeks if the pain has not resolved. She was discharged in stable condition. Lab Data Radiology Impressions Hand X-Ray 08/30/23 09:25 IMPRESSION: No acute findings. 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
== END 2023-08-30 10:44 | disposition home or self-care (01) ==
PROVIDERS: Emergency Provider Emergency Medicine
DX: S60.221A Contusion of right hand, initial encounter (principal); W22.8XXA Striking against or struck by other objects, initial encounter; F17.210 Nicotine dependence, cigarettes, uncomplicated
CPT/HCPCS: 73120; 99283

== ENCOUNTER 2025-05-24 10:53 | Emergency (ER) | payer SELFPAY ==
--- NOTE | 2025-05-24 10:56 | ED_ITS ---
HPI - Abdominal Pain 2 General: Chief Complaint: Abdominal Pain Stated Complaint: abm pain Time Seen by Provider: 05/24/25 10:55 History of Present Illness: 44-year-old female presents emergency ro om with complaints of left lower quadrant abdominal pain as well as a hemorrhoid that has been inflamed. She has had a little bit of blood when she wipes and when she has a bowel movement but no bleeding in between. She has had problems with diverticulitis in the past recently has had progressive worsening pain in the left lower quadrant. She believes she has had 4-5 other episodes of diverticulitis previously. No low- grade fever poor appetite no vomiting she chronically has loose stools since previously having a cholecystectomy. Associated Symptoms: Reports diarrhea (Chronic unchanged), hematochezia (Hemorrhoid) and nausea; Denies chills, coffee ground emesis, dysuria, fever(s), hematemesis, melena and vomiting Related Data Previous Rx's ?Medication ?Instructions ?Recorded amoxicillin 875 mg-potassium 1 tab PO BID #14 tabs 03/13 clavulanate 125 mg tablet Allergies Allergy/AdvReac Type Severity Reaction Status Date / Time No Known Allergies Allergy Verified 06/24/23 13:46 Review of Systems 2 Const: Denies: fever(s) or chills Card: Denies: chest pain Resp: Denies: dyspnea GI: Reports: abdominal pain, nausea, diarrhea (Chronic unchanged) and hematochezia (Hemorrhoid); Denies: vomiting, hematemesis, coffee ground emesis or melena : Denies: dysuria, urinary frequency or urinary urgency Musc: Denies: neck pain or back pain Skin/Breast: Denies: rash PFSH ED 2 PFSH: Medical History Tobacco use disorder, moderate, dependence Endometriosis Polycystic ovary syndrome delivery delivered Surgical History History of laparoscopy Hx of section x 2 Hx of cholecystectomy Family History Family/Other Cancer Maternal Aunts-breast, pancreatic and brain Other Diabetes Hyperlipidemia Hypertension Lung disease Psychiatric illness Stroke Denies family history of CAD (coronary artery disease) Clotting disorder Dementia Chronic kidney disease (CKD) Anesthesia complication Bleeding disorder Social History Smoking and tobacco/nicotine status: current every day tobacco/nicotine user cigarettes Packs smoked per day: 1 Quit status (tobacco/nicotine): has tried quititng Second hand smoke exposure: No Alcohol intake: current Alcohol intake frequency: holidays/special occasions only Substance/Drug Use: current Substance/Drug use frequency: daily Lives independently: Yes Marital status: Number of children: 2 Current occupational status: employed 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 [employer] Special marisol needs: No Agree to transfusion: Yes Female Reproductive History: Para: 2 Physical Exam 2 Const: GENERAL APPEARANCE: cooperative ORIENTATION/CONSCIOUSNESS: Yes awake, Yes oriented to person, Yes oriented to place and Yes oriented to time HENMT: COMMON NORMALS: normocephalic, atraumatic and hearing grossly normal bilaterally HEAD & SCALP: normocephalic and atraumatic Resp: COMMON NORMALS: normal respiratory effort, No retractions, No use of accessory muscles and clear to auscultation bilaterally AUSCULTATION: clear to auscultation bilaterally Cardio: COMMON NORMALS: regular rate, regular rhythm and No murmurs present (Cardio) RATE: regular rate RHYTHM: regular rhythm GI: COMMON NORMALS: No hepatosplenomegaly present AUSCULTATION: Yes normoactive bowel sounds PALPATION: Yes Tenderness to palpation present (GI) Details: LLQ, No Guarding due to palpation present (GI) and Yes No hepatosplenomegaly present Extremity: COMMON NORMALS: normal to inspection, capillary refill normal, no clubbing, cyanosis or edema, no calf tenderness and no pedal edema Neuro: SENSORIUM/ORIENTATION: Yes oriented to person, Yes oriented to place and Yes oriented to time Skin: COMMON NORMALS: no rashes or lesions noted GENERAL SKIN EXAM: no rashes or lesions noted Course 2 Vital Signs: Vital signs: Vital Signs Temperature 98.2 F 05/24/25 11:04 Pulse Rate 88 05/24/25 14:44 Respiratory Rate 16 05/24/25 11:04 Blood Pressure 142/98 05/24/25 14:44 Pulse Oximetry 97 05/24/25 14:44 Oxygen Delivery Me thod Room Air 05/24/25 13:04 MDM - Abdominal Pain Medical Decision Making Clinically suspect patient does have a mild diverticulitis not noted on the CT. Also suspect she has a thrombosed hemorrhoid she is very uncomfortable. I had instructed nurse to have the patient changed to a gown to do an exam if she had a thrombosed hemorrhoid we could relieve it by lancing and draining it patient refuses exam. Patient discharged home advised her she can return anytime we complete exam. Will start her on Augmentin for her diverticulitis. Medical Records I reviewed the patient's medical records. Lab Data I reviewed the patient's lab results. 05/24/25 11:34 05/24/25 11:34 Labs/Radiology: Radiology Impressions Abdomen/Pelvis CT 05/24/25 11:48 IMPRESSION: 1. Normal appendix. 2. Scattered diffuse colonic diverticula but no evidence for acute diverticulitis. 3. No ascites or adenopathy. 4. Prior cholecystectomy. 5. No renal obstruction. Laboratory Results WBC 12.29 10^3/uL (3.29-11.43) H 05/24/25 11:34 RBC 5.05 10^6/uL (3.85-5.65) 05/24/25 11:34 Hgb 14.50 g/dL (11.27-16.99) 05/24/25 11:34 Hct 44.1 % (36-47) 05/24/25 11:34 MCV 87.3 fl (85-98) 05/24/25 11:34 MCH 28.7 pg (27-33) 05/24/25 11:34 MCHC 32.9 g/dL (30-55) 05/24/25 11:34 RDW 13.5 % (12.1-15.1) 05/24/25 11:34 Plt Count 311 10^3/cmm (157-399) 05/24/25 11:34 MPV 10.5 fL (7.4-10.4) H 05/24/25 11:34 Neut % (Auto) 65.8 % 05/24/25 11:34 Lymph % (Auto) 24.8 % 05/24/25 11:34 [place] % (Auto) 6.9 % 05/24/25 11:34 Eos % (Auto) 2.0 % 05/24/25 11:34 Baso % (Auto) 0.2 % 05/24/25 11:34 Neut # (Auto) 8.08 10^3/uL (1.8-7.7) H 05/24/25 11:34 Lymph # (Auto) 3.1 10^3/uL (0.8-4.8) 05/24/25 11:34 [place] # (Auto) 0.9 10^3/uL (0.2-0.9) 05/24/25 11:34 Eos # (Auto) 0.2 10^3/uL (0.0-0.8) 05/24/25 11:34 Baso # (Auto) 0.0 10^3/uL (0.0-0.1) 05/24/25 11:34 Nucleated RBC % (auto) 0 % 05/24/25 11:34 Nucleated RBCs # 0.0 /100WBC 05/24/25 11:34 Sodium 143 mmol/L (136-145) 05/24/25 11:34 Potassium 3.8 mmol/L (3.5-5.1) 05/24/25 11:34 Chloride 107 mmol/L (98-107) 05/24/25 11:34 Carbon Dioxide 24 mmol/L (22-29) 05/24/25 11:34 Anion Gap 15.8 (5-19) 05/24/25 11:34 BUN 6 mg/dL (6-20) 05/24/25 11:34 Creatinine 0.7 mg/dL (0.5-0.9) 05/24/25 11:34 GFR Calculation 91.8 mL/min (90-130) 05/24/25 11:34 Glucose 94 mg/dL (65-115) 05/24/25 11:34 Calculated Osmolality 293 mOsm/kg (285-295) 05/24/25 11:34 Calcium 9.1 mg/dL (8.5-10.5) 05/24/25 11:34 Total Bilirubin 0.3 mg/dL (0.15-1.2) 05/24/25 11:34 AST 15 U/L (0-32) 05/24/25 11:34 ALT 13 U/L (0-33) 05/24/25 11:34 Alkaline Phosphatase 86 U/L (35-105) 05/24/25 11:34 Total Protein 7.3 g/dL (6.6-8.7) 05/24/25 11:34 Albumin 4.1 g/dL (3.5-5.2) 05/24/25 11:34 Globulin 3.2 g/dL (1.3-4.6) 05/24/25 11:34 Lipase 28 U/L (13-60) 05/24/25 11:34 HCG, Qual Negative (Negative) 05/24/25 11:34 Urine Color Yellow (Yellow) 05/24/25 11:08 Urine Appearance Clear (CLEAR) 05/24/25 11:08 Urine pH 8.0 (5-7) A 05/24/25 11:08 Ur Specific [place] 1.007 (1.005-1.030) 05/24/25 11:08 Urine Protein Negative (Negative) 05/24/25 11:08 Urine Glucose (UA) Negative (Normal) 05/24/25 11:08 Urine Ketones Negative (Negative) 05/24/25 11:08 Urine Blood Negative (Negative) 05/24/25 11:08 Urine Nitrate Negative (Negative) 05/24/25 11:08 Urine Bilirubin Negative (Negative) 05/24/25 11:08 Urine Urobilinogen 0.2 mg/dL (Negative) 05/24/25 11:08 Ur Leukocyte Esterase Negative (Negative) 05/24/25 11:08 Urine RBC 0-2 /hpf (0-2) 05/24/25 11:08 Urine WBC 0-5 /hpf (0-5) 05/24/25 11:08 Ur Squamous Epith Cells 0-5 /hpf (0-5) 05/24/25 11:08 Amorphous Sediment Not Reportable 05/24/25 11:08 Urine Bacteria None seen /hpf (NONE) 05/24/25 11:08 Hyaline Casts 0-4 /lpf H 05/24/25 11:08 All radiology interpretation(s) finalized by discharge Discharge Plan Discharge Patient Disposition: Home Clinical Impression: Diverticulitis Condition: Stable Prescriptions: New amoxicillin-pot clavulanate 875-125 mg tablet 1 tab PO BID Qty: 14 0RF Discharge Orders: Discharge ED (Routine); Ordered 05/24/25 Ordered By: Triston Quintero Discharge Diet: As Directed Discharge Activity: Increase activity as tolerated Patient Instructions: Diverticulitis (ED), Opioid Safety, Pain Management, Patient Portal & Jose Instructions Activity Restrictions/Additional Instructions: Thank you for choosing [facility] for your healthcare needs today. It is very important that you follow up as instructed or that you return to the Emergency Department should you have concerns or if your condition changes or worsens in any way. You were seen in the emergency room with complaints of left lower quadrant abdominal pain. The CT did not show any significant diverticulitis but based on your symptoms suspect you are having some early mild diverticulitis we will recommend that you start on some Augmentin twice a day for 7 days. You also mention some problems with hemorrhoids and some rectal bleeding. Since she declined further exam we are not able to address this if your symptoms worsen you are welcome to return to the emergency room to have this evaluated further or you can follow-up with your primary care doctor. 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
[2025-05-24 11:04] VITALS: BP 174/106; PULSE 84; RESP 16; TEMP 36.8; O2SAT 96
[2025-05-24 11:38] LABS: Glucose Urine UA Negative (Normal); Nitrate Urine Negative (Negative); Specific Gravity, Urine 1.007 (1.005-1.030)
[2025-05-24 11:40] LABS: Hematocrit 44.1 % (36-47); Hemoglobin 14.50 g/dL (11.27-16.99); Mean Corpuscular HGB Conc 32.9 g/dL (30-55); Mean Corpuscular Hemoglobin 28.7 pg (27-33); Mean Corpuscular Volume 87.3 fl (85-98); Nucleated Red Blood Cells % 0 %; Platelet Count 311 10^3/cmm (157-399); Red Blood Count 5.05 10^6/uL (3.85-5.65); White Blood Count 12.29 10^3/uL (3.29-11.43)
[2025-05-24 11:43] LABS: Add Urine Microscopic? YES
--- NOTE | 2025-05-24 11:48 | CT_ITS ---
WS: [id number] CT ABDOMEN AND PELVIS NONCONTRAST HISTORY: Abdominal pain/left lower quadrant/leukocytosis TECHNIQUE: Imaging performed through the abdomen and pelvis. Coronal and sagittal reformats are submitted. All CT scans at [facility] use at least one of these dose optimization techniques: automated exposure control; mA and/or kV adjustment per patient size (includes targeted exams where dose is matched to clinical indication); or iterative reconstruction. DLP: 1398.13 mGy.cm COMPARISON: 05/19/2023 Lower thorax: Lung bases are clear. Visualized heart is normal. No hiatal hernia. Liver: Normal size liver. No mass or bile duct dilatation. Gallbladder: Prior cholecystectomy. Pancreas: Normal size and attenuation. Normal pancreatic duct. No pancreatitis or mass. Spleen: Normal. Adrenal glands: Normal. No mass. Right kidney: Normal size kidney with no mass or hydronephrosis. Left kidney: Normal size kidney with no mass or hydronephrosis. Aorta: Mild atherosclerosis abdominal aorta with no aneurysm. No free fluid, intraperitoneal air or significant lymphadenopathy. GI tract: Nondilated stomach. No small bowel obstruction. Normal appendix. Numerous diverticula scattered throughout the colon. No acute diverticulitis. Abdominal wall: Small umbilical hernia contains fat only. Pelvis: Normal urinary bladder. No free fluid. Osseous structures: Unremarkable. CT/CT abdomen pelvis wo con [id number] IMPRESSION: 1. Normal appendix. 2. Scattered diffuse colonic diverticula but no evidence for acute diverticuli tis. 3. No ascites or adenopathy. 4. Prior cholecystectomy. 5. No renal obstruction.
[2025-05-24 12:04] LABS: Alanine Aminotransferase 13 U/L (0-33); Albumin Level 4.1 g/dL (3.5-5.2); Alkaline Phosphatase 86 U/L (35-105); Anion Gap 15.8 (5-19); Aspartate Amino Transferase 15 U/L (0-32); Blood Urea Nitrogen 6 mg/dL (6-20); Calcium 9.1 mg/dL (8.5-10.5); Carbon Dioxide 24 mmol/L (22-29); Chloride 107 mmol/L (98-107); Creatinine Clr Calc Pharmacy 157.1646; Globulin 3.2 g/dL (1.3-4.6); Glucose 94 mg/dL (65-115); Lipase 28 U/L (13-60); Osmolality Calculated 293 mOsm/kg (285-295); Potassium 3.8 mmol/L (3.5-5.1); Sodium 143 mmol/L (136-145); Total Protein 7.3 g/dL (6.6-8.7)
[2025-05-24 12:18] LABS: HCG, Serum Qual Negative (Negative)
[2025-05-24 13:04] VITALS: BP 118/67; PULSE 81; O2SAT 96
--- NOTE | 2025-05-24 14:32 | PC.NURSE ---
this nurse went to ask pt to change into a gown, pt asked what for, this nurse told pt that the provider wants to do a rectal exam, pt refused stating nope, I refuse that. Dr. Quintero noticed and aware.
[2025-05-24 14:44] VITALS: BP 142/98; PULSE 88; O2SAT 97
== END 2025-05-24 14:45 | disposition home or self-care (01) ==
PROVIDERS: Physician Assistant; Emergency Provider Family Medicine
DX: K57.92 Diverticulitis of intestine, part unspecified, without perforation or abscess without bleeding (principal); F17.210 Nicotine dependence, cigarettes, uncomplicated
CPT/HCPCS: 36415; 74176; 80053; 81001; 83690; 84703; 85025; 99284